=== PATIENT | female | born 1975 | race Caucasian/White ===

== ENCOUNTER 2021-09-15 15:44 | Emergency (ER) | payer BC ==
--- OUTSIDE RECORDS SUMMARY | 2021-09-15 15:47 | XMS REPORT | Continuity of Care Document ---
:1975 Author Organization [facility] t Address [address] [place] [address] Care Team Providers Name Role Phone MAAMEREBEKAH Attending Clinician Unavailable Payers Payer Name Policy Type Policy Number Effective Date Expiration Date [facility] [id number] 2015 CHOICE 00:00:00 Problems This patient has no known problems. Allergies, Adverse Reactions, Alerts Allergy Allergy Status Severity Reaction(s) Onset Inactive Treating Comm ents Source Name Type Date Date Clinician NO KNOWN Drug Active [facility] ALLERGIE [facility] Medications Ordered Filled Start Stop Current Ordering Indication Dosage Frequency Signature Comments Components Source Medication Medication Date Date Medication? Clinician (SIG) Name Name Albuterol Albuterol 2020-0 Yes Demetris [address] [facility] Sulfate HFA Sulfate HFA 9 [place] [facility] Flovent HFA Flovent HFA 2020-0 Yes Demetris [address] [facility] 9-08 [place] [facility] Procedures This patient has no known procedures. Encounters Start End Encounter Admission Attending Care Care Encounter Source Date/Time Date/Time Type Type Clinicians Facility Department ID 2021-08-21 2021-08-21 [facility] [id number] 2021-07-20 2021-07-20 [facility] [id number] [facility] 2021-06-26 2021-06-26 [id number] [facility] 2021-06-12 2021-06-12 [facility] [id number] [facility] 2021-04-26 2021-04-26 [facility] [id number] [facility] 2021-01-04 2021-01-04 [facility] [id number] [facility] 2020-12-21 2020-12-21 [facility] [id number] [facility] 2020-11-23 2020-11-23 [facility] [id number] [facility] 2020-11-23 2020-11-23 [facility] [id number] [facility] 2020-11-06 2020-11-06 [facility] [id number] [facility] 2020-09-29 2020-09-29 [facility] [id number] [facility] 2020-09-19 2020-09-19 [facility] [id number] [facility] 2020-09-07 2020-09-07 [facility] [id number] [facility] 2020-09-04 2020-09-04 [facility] [id number] [facility] 2020-07-17 2020-07-17 [facility] [id number] [facility] 2020-06-29 2020-06-29 Outpatient Riaz DRAPER, [facility] [id number] [facility] 08:00:00 08:00:00 [facility] 2020-06-05 2020-06-05 [facility] [id number] [facility] 2020-05-09 2020-05-09 [facility] [id number] [facility] 08[facility]:00 08:44:00 [place] Consorti[place] [facility] - [facility] 2020-04-04 2020-04-04 [facility] [id number] 10:30:00 10:30:00 [place] Zeppelin LuRealCrowd s - [facility] 2020-02-29 2020-02-29 [facility] [id number] 10:16:00 10:16:00 [place] Messagemind s - [facility] 2020-02-08 2020-02-08 [facility] [id number] [address] 14:30:00 14:30:00 [place] LuRealCrowd s - [facility] 2019-12-09 2019-12-09 [facility] [id number] [facility] 09:30:00 09:30:00 [place]ppelin LuRealCrowd s - [facility] Out[facility] Clin[facility] 2019-10-07 2019-10-07 [facility] [id number] [facility] [address] 10:15:00 10:15:00 [place] [employer] s - [facility] Outpat[facility] Clin[facility] 2019-09-30 2019-09-30 [facility] [id number] [facility] 15:11:00 15:11:00 [place] [address] [facility] - [facility] Medicine l Medicine Outpat[facility] ent Clinics 2019-08-05 2019-08-05 [facility] [id number] 09:00:00 09:00:00 [place] Luke s - Drive [facility] l Medicine Outpati ent Clinics 2019-07-08 2019-07-08 [facility] [id number] 08:15:00 08:15:00 [place] LuRealCrowd s - Drive [facility] l Medicine Outpati ent Clinics 2019-06-09 2019-06-09 [facility] [id number] [address] 10:00:00 10:00:00 [place] [employer] [facility] - [facility] Medicine Outpati ent Clinics 2019-05-12 2019-05-12 [facility] [id number] [address] 09[facility]30:00 09:30:00 [place] [employer] [facility] - [facility] Medicine Outpati ent Clinics 2019-04-07 2019-04-07 [facility] [id number] 09:45:00 09:45:00 [place] [employer] [facility] - [facility] Medicine Outpati ent Clinics 2019-01-06 2019-01-06 [facility] [id number] [address] 10:00:00 10:00:00 [place] [employer] [facility] - [facility] Medicine Outpati ent Clinics 2018-12-24 2018-12-24 [facility] [id number] 13:26:00 13:26:00 [place] [employer] s - [facility] Medicine Medicine Outpati ent Clinics 2018-12-08 2018-12-08 [facility] [id number] 10:15:00 10:15:00 [place] [employer] [facility] - [facility] Medicine Outpati ent Clinics 2018-11-24 2018-11-24 [facility] [id number] [address] 15:00:00 15:00:00 [place] [employer] [facility] - Drive [facility] l Medicine Outpati ent Clinics 2018-06-01 2018-06-01 [facility] [id number] [facility] 14:30:00 14:30:00 t IES [facility] Medicine Outpati ent Clinics Results This patient has no known results.
[2021-09-15] MEDS ORDERED: ONDANSETRON 4 MG/2 ML VIAL ONE (15:51)
[2021-09-15] MEDS ORDERED: NA CHLORIDE 0.9% 1,000 ML ONE (15:52)
[2021-09-15] MEDS ORDERED: KETOROLAC 30 MG/ML INJ ONE (15:52)
[2021-09-15 16:08] LABS: Urine Blood Negative (Negative); Urine Glucose Negative (Negative); Urine Protein Negative (Negative); Urine Specific Gravity >=1.030 (1.005-1.030); Urine pH 5.5 (5.0-7.0)
[2021-09-15 16:09] LABS: Absolute Lymphocytes (CBC) 2.4 K/uL (0.7-4.9); Hematocrit 38.6 % (36.0-45.0); Lymphocytes % 36.1 % (15.3-44.8); MPV 7.5 fL (7.6-11.3); RBC Red Blood Cell Count 4.18 M/uL (3.86-4.86)
[2021-09-15 16:28] LABS: ALT/SGPT 31 U/L (12-78); Albumin 3.4 g/dL (3.4-5.0); Alkaline Phosphatase 55 U/L (45-117); BUN Blood Urea Nitrogen 16 mg/dL (7-18); Bicarbonate 21 mmol/L (21-32); Bilirubin Direct < 0.1 mg/dL (0-0.2); Bilirubin Total 0.2 mg/dL (0.2-1.0); Glucose Level 94 mg/dL (74-106); Lipase 96 U/L (73-393); Potassium 3.5 mmol/L (3.5-5.1); Protein, Total 7.1 g/dL (6.4-8.2); Sodium Level 138 mmol/L (136-145)
[2021-09-15 16:29] LABS: AST/SGOT 28 U/L (15-37)
--- NOTE | 2021-09-15 16:38 | RAD REPORT ---
EXAM DESCRIPTION: CT - Head C Spine Cap Shaista Rivera - 09/15/2021 4:23 pm CLINICAL HISTORY: Trauma, head and neck injury. Chest, abdomen and pelvis pain. PAIN COMPARISON: <Comparisons> TECHNIQUE: CT head without contrast. CT cervical spine without contrast with coronal and sagittal reformatted images. CT chest, abdomen and pelvis with coronal and sagittal reformatted images of the spine. All CT scans are performed using dose optimization technique as appropriate and may include automated exposure control or mA/KV adjustment according to patient size. FINDINGS: CT HEAD WITHOUT CONTRAST: No intracranial hemorrhage, hydrocephalus or extra-axial fluid collection. No acute large vascular te rritory infarct. The paranasal sinuses and mastoids are clear. The calvarium is intact. Soft tissue swelling along the right vertex of the skull. CT CERVICAL SPINE WITHOUT CONTRAST: No fracture or subluxation. The prevertebral soft tissues are normal in thickness. CT CHEST, ABDOMEN, PELVIS: Thorax: Chest Wall: No abnormal mass Lungs: No acute abnormality. Pleura: No effusions or pneumothorax. Rae/Mediastinum: No lymphadenopathy. Aorta/Pulmonary Arteries: Unremarkable Heart: Normal size. Abdomen/Pelvis: Liver: No acute abnormality or suspicious lesions. Biliary: No biliary ductal dilatation. Stomach: No significant focal abnormality. Duodenum: No significant focal abnormality. Pancreas: No significant abnormality. Spleen: No significant abnormality. Adrenal: No suspicious lesions. Kidney/ureter: No hydronephrosis. No renal calculi. Retroperitoneum: No retroperitoneal adenopathy. Vascular: No aneurysm. Bowel: No significant focal abnormality. Peritoneum: No ascites or free air. Bladder: Grossly unremarkable. Reproductive: No adnexal masses. Bones: Compression fracture at L1 with approximately 20% loss of height anteriorly. No bony retropuls ion. Other: n/a IMPRESSION: 1. L1 compression fracture with approximately 20% loss of height anteriorly. No bony ret ropulsion. 2. No acute intracranial abnormality or cervical spine fractures identified.
--- NOTE | 2021-09-15 17:05 | ER ---
Nurse's Notes [facility] [place] Name: Una Rai Age: 46 yrs Sex: Female : 1975 Arrival Date: 09/15/2021 Time: 15:45 Bed 2 Private MD: Diagnosis: Fall (on) (from) other stairs and steps-10 feet;Fracture of first lumbar vertebra-20% compression, intractable pain Presentation: 09/15 16:03 Chief complaint: Patient states: back pain, abdominal pain, headache. Care prior to jg9 arrival: full spinal immobilization. Mechanism of Injury: Fall. Trauma event details: Injury occurred: at home. 16:03 Acuity: HAWA 3 jg9 16:03 Method Of Arrival: EMS: [facility] 9 16:08 Chief complaint: EMS states: Patient from from attic to the floor and unsure if she ww landed on her back or her abdomen. C-Collar in place and on back board. Trauma Activation: Physician: ED Physician; Name: Dr. Sims; Notified At: ; Arrived At: Physician: General Surgeon; Name: ; Notified At: ; Arrived At: Physician: Radiology; Name: Anna; Notified At: ; Arrived At: Physician: Respiratory; Name: ; Notified At: ; Arrived At: Physician: Lab; Name: ; Notified At: ; Arrived At: Historical: - Allergies: 16:14 No Known Allergies; ww - Home Meds: 16:14 Adderall XR Oral [Active]; ww - PSHx: 16:14 back; liposuction; ww - Immunization history:: Client reports receiving the 2nd dose of the Covid vaccine. - Social history:: Smoking status: Patient denies any tobacco usage or history of. Patient uses alcohol, occasionally. - Code Status:: Full code. Screenin:00 Abuse screen: Denies threats or abuse. Nutritional screening: No deficits noted. tw2 Tuberculosis screening: No symptoms or risk factors identified. Fall Risk None identified. Primary Survey: 16:04 NO uncontrolled hemorrhage observed. A: The patient is alert. Airway: patent, Patient jg9 intubated prior to arrival No supplemental oxygen in use on arrival. Oral cavity: clear, gag reflex present, Trachea midline. Breathing/Chest: Respiratory pattern: regular, Respiratory effort: spontaneous, unlabored, Breath sounds: clear, bilaterally. Chest inspection: symmetrical rise and fall of the chest. Circulation: Cardiac rhythm: sinus rhythm Heart tones present. Pulses: palpable right radial artery. Skin color: pink, Skin temperature: warm, Arterial Line:. Disability Alert. Exposure/Environment: All clothing and personal items were removed. Forensic evidence collection is not deemed to be indicated at this time. Items placed in patient belonging bag. A warming method has been applied: A warm blanket has been provided to the patient. Reassessment. Assessment: 16:08 General: Appears uncomfortable, obese, well developed, Behavior is calm, cooperative, ww appropriate for age. Pain: Complains of pain in face, scalp, back and abdomen. Neuro: Level of Consciousness is awake, alert, obeys commands, Oriented to person, place, time, situation, Appropriate for age Speech is normal. EENT: No deficits noted. No signs and/or symptoms were reported regarding the EENT system. Cardiovascular: Denies chest pain, shortness of breath, Capillary refill < 3 seconds Patient's skin is warm and dry. Rhythm is regular Chest pain is denied. Respiratory: Airway is patent Respiratory effort is even, unlabored, Respiratory pattern is regular, symmetrical. GI: Abdomen is non-distended, Abd is soft X 4 quads Abdomen is tender to palpation in left upper quadrant. : No deficits noted. No signs and/or symptoms were reported regarding the genitourinary system. Derm: No deficits noted. No signs and/or symptoms reported regarding the dermatologic system. Skin is intact, is healthy with good turgor, Skin is pink, warm \T\ dry. Musculoskeletal: Circulation, motion, and sensation intact. Capillary refill < 3 seconds, Reports pain in face, scalp, back and abdomen. 16:09 General: Appears in no apparent distress. Behavior is calm. Pain: Complains of pain in jg9 head, chest, back of neck and back. GI: Reports upper abdominal pain. 16:30 Reassessment: Patient appears in no apparent distress at this time. No changes from ww previously documented assessment. Patient and/or family updated on plan of care and expected duration. Pain level reassessed. Patient is alert, oriented x 3, equal unlabored respirations, skin warm/dry/pink. Neuro: Level of Consciousness is awake, alert, obeys commands, Oriented to person, place, time, situation, Moves all extremities. 17:17 Reassessment: Patient appears in no apparent distress at this time. Patient and/or ww family updated on plan of care and expected duration. Pain level reassessed. Patient is alert, oriented x 3, equal unlabored respirations, skin warm/dry/pink. Neuro: Level of Consciousness is awake, alert, obeys commands, Oriented to person, place, time, situation, Moves all extremities. 20:44 General: see paper charting. as6 Vital Signs: 16:08 BP 137 / 97; Pulse 77; Resp 16; Temp 98.4(TE); Pulse Ox 97% on R/A; Weight 72.57 kg; ww Height 5 ft. 6 in. (167.64 cm); Pain 9/10; 16:08 Body Mass Index 25.82 (72.57 kg, 167.64 cm) ww Gonzalo Coma Score: 16:08 Eye Response: spontaneous(4). Verbal Response: oriented(5). Motor Response: obeys ww commands(6). Total: 15. 16:11 Eye Response: spontaneous(4). Verbal Response: oriented(5). Motor Response: obeys jg9 commands(6). Total: 15. Trauma Score (Adult): 16:08 Eye Response: spontaneous(1); Verbal Response: oriented(1); Motor Response: obeys ww commands(2); Systolic BP: > 89 mm Hg(4); Respiratory Rate: 10 to 29 per min(4); Gonzalo Score: 15; Trauma Score: 12 16:11 Eye Response: spontaneous(1); Verbal Response: oriented(1); Motor Response: obeys jg9 commands(2); Systolic BP: > 89 mm Hg(4); Respiratory Rate: 10 to 29 per min(4); [place] Score: 15; Trauma Score: 12 ED Course: 15:45 Patient arrived in ED. ds1 15:45 Bed in low position. Call light in reach. fabrication and assembly supervisor on. Pulse ox on. NIBP on. tw2 Warm blanket given. 15:47 Yonas Sims MD is Attending Physician. tim 15:58 Maintain EMS IV. Dressing intact. Good blood return noted. Site clean \T\ dry. Gauge \T\ tw 2 site: 18 g RIGHT ac. 16:03 Thermoregulation: warm blanket given to patient. tw2 16:04 Triage completed. jg9 16:08 Rosi Mac, RN is Primary Nurse. ww 16:08 Basic Metabolic Panel Sent. ww 16:23 CT Traumagram (Head C Spine CAP W Con) In Process Unspecified. EDMS 16:41 Urine --Ancillary (enter results) Sent. ww 16:[address] Sims with Rosi from the [facility]. 16:53 administrative approval given by Rosi Booth Rn/ patient has been accepted to [facility] ER/ Dr. Quinn Van has accepted the patient in transfer/ report to be called to the ER at [phone]. Administered Medications: 15:52 Drug: NS 0.9% 1000 ml Route: IV; Rate: 1 bolus; Site: right antecubital; tw2 15:52 Drug: Zofran (Ondansetron) 4 mg Route: IVP; Site: right antecubital; tw2 15:54 Drug: TORadol (ketorolac) 30 mg Route: IVP; Site: right antecubital; tw2 Outcome: 17:04 ER care complete, transfer ordered by . tim 20:44 Patient left the ED. as6 Signatures: Dispatcher [employer] EDMS Yonas Sims MD MD cha Sanford, Demi ds1 Darya Roman, RN RN tw2 Arlene Beauchamp Ashby, RN RN as6 Chelo Burk RN RN jg9 Rosi Mac, RN RN ww
--- NOTE | 2021-09-15 17:05 | EDPHYS ---
Physician Documentation [facility] [place] Name: Una Rai Age: 46 yrs Sex: Female : 1975 Arrival Date: 09/15/2021 Time: 15:45 Bed 2 Private MD: HAN Physician Yonas Sims HPI: 09/15 16:46 This 46 yrs old Female presents to ER via EMS with complaints of Fall Injury. tim 16:46 Details of fall: The patient fell from a height, off a roof, approximately 10 feet. tim Onset: The symptoms/episode began/occurred just prior to arrival. Associated injuries: The patient sustained injury to the head, injury to the low back, decreased range of motion, pain. Severity of symptoms: At their worst the symptoms were moderate, in the emergency department the symptoms are unchanged. The patient has experienced a previous episode. Historical: - Allergies: 16:14 No Known Allergies; ww - Home Meds: 16:14 Adderall XR Oral [Active]; ww - PSHx: 16:14 back; liposuction; ww - Immunization history:: Client reports receiving the 2nd dose of the Covid vaccine. - Social history:: Smoking status: Patient denies any tobacco usage or history of. Patient uses alcohol, occasionally. - Code Status:: Full code. ROS: 16:47 Constitutional: Negative for fever, chills, and weight loss, Eyes: Negative for injury, tim pain, redness, and discharge, ENT: Negative for injury, pain, and discharge, Neck: Negative for injury, pain, and swelling, Cardiovascular: Negative for chest pain, palpitations, and edema, Respiratory: Negative for shortness of breath, cough, wheezing, and pleuritic chest pain, : Negative for injury, bleeding, discharge, and swelling, MS/Extremity: Negative for injury and deformity, Skin: Negative for injury, rash, and discoloration, Neuro: Negative for headache, weakness, numbness, tingling, and seizure, Psych: Negative for depression, anxiety, suicide ideation, homicidal ideation, and hallucinations, Allergy/Immunology: Negative for hives, rash, and allergies, Endocrine: Negative for neck swelling, polydipsia, polyuria, polyphagia, and marked weight changes, Hematologic/Lymphatic: Negative for swollen nodes, abnormal bleeding, and unusual bruising. 16:47 Abdomen/GI: Positive for abdominal pain. 16:47 Back: Positive for decreased range of motion, pain at rest, pain with movement, of the lumbar area. Exam: 16:47 Constitutional: This is a well developed, well nourished patient who is awake, alert, tim and in no acute distress. Head/Face: Normocephalic, atraumatic. Eyes: Pupils equal round and reactive to light, extra-ocular motions intact. Lids and lashes normal. Conjunctiva and sclera are non-icteric and not injected. Cornea within normal limits. Periorbital areas with no swelling, redness, or edema. ENT: Nares patent. No nasal discharge, no septal abnormalities noted. Tympanic membranes are normal and external auditory canals are clear. Oropharynx with no redness, swelling, or masses, exudates, or evidence of obstruction, uvula midline. Mucous membranes moist. Neck: Trachea midline, no thyromegaly or masses palpated, and no cervical lymphadenopathy. Supple, full range of motion without nuchal rigidity, or vertebral point tenderness. No Meningismus. Chest/axilla: Normal chest wall appearance and motion. Nontender with no deformity. No lesions are appreciated. Cardiovascular: Regular rate and rhythm with a normal S1 and S2. No gallops, murmurs, or rubs. Normal PMI, no JVD. No pulse deficits. Respiratory: Lungs have equal breath sounds bilaterally, clear to auscultation and percussion. No rales, rhonchi or wheezes noted. No increased work of breathing, no retractions or nasal flaring. Female : Normal external genitalia. Skin: Warm, dry with normal turgor. Normal color with no rashes, no lesions, and no evidence of cellulitis. MS/ Extremity: Pulses equal, no cyanosis. Neurovascular intact. Full, normal range of motion. Neuro: Awake and alert, GCS 15, oriented to person, place, time, and situation. Cranial nerves II-XII grossly intact. Motor strength 5/5 in all extremities. Sensory grossly intact. Cerebellar exam normal. Normal gait. Psych: Awake, alert, with orientation to person, place and time. Behavior, mood, and affect are within normal limits. 16:47 Abdomen/GI: Inspection: distension, that is mild, Bowel sounds: active, Palpation: mild abdominal tenderness, Liver: no appreciated palpable abnormalities, Hernia: not appreciated. 16:47 Back: pain, that is moderate, of the lumbar area, ROM is painful, normal spinal alignment noted, CVA tenderness, is absent, vertebral tenderness, is appreciated at T12, L1 and L2, muscle spasm, is appreciated in the left low back, left mid back, right mid back and right low back, Straight leg raises: of both lower extremities does not illicit pain. Vital Signs: 16:08 BP 137 / 97; Pulse 77; Resp 16; Temp 98.4(TE); Pulse Ox 97% on R/A; Weight 72.57 kg; ww Height 5 ft. 6 in. (167.64 cm); Pain 9/10; 16:08 Body Mass Index 25.82 (72.57 kg, 167.64 cm) ww Gonzalo Coma Score: 16:08 Eye Response: spontaneous(4). Verbal Response: oriented(5). Motor Response: obeys ww commands(6). Total: 15. 16:11 Eye Response: spontaneous(4). Verbal Response: oriented(5). Motor Response: obeys jg9 commands(6). Total: 15. Trauma Score (Adult): 16:08 Eye Response: spontaneous(1); Verbal Response: oriented(1); Motor Response: obeys ww commands(2); Systolic BP: > 89 mm Hg(4); Respiratory Rate: 10 to 29 per min(4); Ros[place] Score: 15; Trauma Score: 12 16:11 Eye Response: spontaneous(1); Verbal Response: oriented(1); Motor Response: obeys jg9 commands(2); Systolic BP: > 89 mm Hg(4); Respiratory Rate: 10 to 29 per min(4); [place] Score: 15; Trauma Score: 12 MDM: 15:47 Patient medically screened. tim 16:58 Differential diagnosis: Epidural or Perispinal Bleed Fatigue Fracture ruptured disc, tim Scoliosis spinal injury, vertebral fracture. Differential diagnosis: closed head injury, contusion, fracture, multiple trauma, sprain, strain. Data reviewed: vital signs, nurses notes, EMS record, lab test result(s), radiologic studies, CT scan. Data interpreted: clinical research monitor: rate is 77 beats/min, rhythm is regular, Pulse oximetry: on room air is 97 %. Test interpretation: by ED physician or midlevel provider: ECG, plain radiologic studies. Counseling: I had a detailed discussion with the patient and/or guardian regarding: the historical points, exam findings, and any diagnostic results supporting the discharge/admit diagnosis, lab results, radiology results, the need to transfer to another facility, for higher level of care, [facility] does not immediately have the required specialist. 09/15 15:48 Order name: Basic Metabolic Panel [facility] 09/15 15:48 Order name: CBC with Diff; Complete Time: 17:02 [facility] 09/15 15:48 Order name: Type And Screen; Complete Time: 17:02 [facility] 09/15 15:48 Order name: LFT's; Complete Time: 17:02 [facility] 09/15 15:48 Order name: Lipase; Complete Time: 17:02 [facility] 09/15 15:48 Order name: Basic Metabolic Panel; Complete Time: 17:02 [facility] 09/15 15:48 Order name: CT Traumagram (Head C Spine CAP W Con); Complete Time: 17:02 [facility] 09/15 16:08 Order name: Urine Dipstick-Ancillary; Complete Time: 17:02 [facility] 09/15 16:11 Order name: Urine --Ancillary (enter results) 09/15 16:11 Order name: Urine --Ancillary; Complete Time: 17:02 [facility] 09/15 15:48 Order name: Labs collected and sent; Complete Time: 16:08 [facility] 09/15 15:48 Order name: Urine Dipstick-Ancillary (obtain specimen); Complete Time: 16:08 [facility] 09/15 15:48 Order name: Urine Test (obtain specimen); Complete Time: 16:08 [facility] Administered Medications: 15:52 Drug: NS 0.9% 1000 ml Route: IV; Rate: 1 bolus; Site: right antecubital; tw2 15:52 Drug: Zofran (Ondansetron) 4 mg Route: IVP; Site: right antecubital; tw2 15:54 Drug: TORadol (ketorolac) 30 mg Route: IVP; Site: right antecubital; tw2 Disposition Summary: 09/15/21 17:04 Transfer Ordered Transfer Location: [facility] tim Reason: Higher level of care tim Condition: Fair tim Problem: new tim Symptoms: have improved tim Accepting Physician: to tasia hooks(09/15/21 20:44) as6 Diagnosis - Fall (on) (from) other stairs and steps - 10 feet tim - Fracture of first lumbar vertebra - 20% compression, intractable pain tim Discharge Instructions: - Discharge Summary Sheet iw Forms: - Medication Reconciliation Form tim - SBAR form iw Signatures: Dispatcher [employer] Yonas Salvador MD MD cha Wise, Tara, RN RN tw2 [facility] RN RN as6 Rosi Mac RN RN ww Corrections: (The following items were deleted from the chart) :44 17:04 to tasia hooks cha as6
[2021-09-15] MEDS ORDERED: MORPHINE 2 MG/ML SYR ONE (17:10)
[2021-09-15 22:48] VITALS: BP 137/97; TEMP 98.4; O2SAT 97
== END 2021-09-15 20:44 | disposition short-term general hospital (02) ==
LOC: ER 15:44
DX: S32.019A Unspecified fracture of first lumbar vertebra, initial encounter for closed fracture (principal); W17.89XA Other fall from one level to another, initial encounter; Y93.89 Activity, other specified; Y92.018 Other place in single-family (private) house as the place of occurrence of the external cause
CPT/HCPCS: 85025; 80048; 36415; 86900; 86850; 81025; 86901; 80076; 81003; 83690; 70450; 72125; 71260; 74177; 96375; 96374; 99284; Q9967; J2270; J7030; J2405; 93005